=== PATIENT | female | born 1995 | race Hispanic/Latino ===

== ENCOUNTER 2020-02-20 06:03 | Day surgery (SDC) | payer BC ==
[2020-02-19 11:15] VITALS: BP 143/86
[2020-02-20] VITALS (17 sets, daily range): BP systolic 109–130; BP diastolic 66–85
[~2020-02-20] VITALS: Ht 157.5 cm; Wt 63.4 kg
[2020-02-20] MEDS ORDERED: LACTATED RINGERS 1000ML 1,000 ML IV ONE (06:40)
[2020-02-20] MEDS ORDERED: ONDANSETRON HCL 4 MG/2 ML VIAL ONE (07:22)
[2020-02-20] MEDS ORDERED: PROPOFOL 10 MG/ML 20ML VIAL IV ONE (07:22)
[2020-02-20] MEDS ORDERED: MIDAZOLAM HCL 1 MG/ML 2ML VIAL ONE (07:22)
[2020-02-20] MEDS ORDERED: SUCCINYLCHOLINE 200MG/10ML SYR ONE ×2 (07:22→07:28)
[2020-02-20] MEDS ORDERED: LIDOCAINE PF 2% 5ML ABBOJECT ONE (07:22)
[2020-02-20] MEDS ORDERED: DEXAMETHASONE SOD PHOSPHATE 10MG/ML 1ML VIAL ONE (07:22)
[2020-02-20] MEDS ORDERED: FENTANYL CITRATE PF 50 MCG/1 ML 2ML VIAL ONE (07:23)
[2020-02-20] MEDS ORDERED: MEPERIDINE-PF 25 MG/ML SYG ONE (07:26)
[2020-02-20] MEDS ORDERED: ROCURONIUM 10MG/1ML SYR 10 MG/ML ML ONE (07:29)
[2020-02-20] MEDS ORDERED: MEROPENEM 500 MG VIAL IVP PRN (08:00)
[2020-02-20] MEDS ORDERED: METOCLOPRAMIDE 10 MG/2 ML VIAL ONE (09:00)
--- NOTE | 2020-02-20 10:20 | NUR ---
DISCHARGE VERBAL AND WRITTEN DISCHARGE INSTRUCTIONS PROVIDED TO PATIENT AND MOTHER-MAX. NEW PRESCRIPTION GIVEN. VERBALIZED UNDERSTANDING. URINE STRAINER AND SPECIMEN CUP PROVIDED. EMPHASIZED TO PATIENT TO INCREASE FLUID INTAKE TO PROMOTE STONE FRAGMENT PASSAGE PER DR. SOUSA. PATIENT STATES NO COMPLAINTS OF PAIN. IV REMOVED-CATHETER INTACT. PATIENT DISCHARGED VIA WHEELCHAIR ACCOMPANIED BY MOTHER TO PRIVATE VEHICLE.
== END 2020-02-20 19:58 | disposition home or self-care (01) ==
LOC: DAH 06:03
PROVIDERS: ATTEND Urology
DX: N20.0 Calculus of kidney (principal); N30.20 Other chronic cystitis without hematuria; Z79.899 Other long term (current) drug therapy; Z20.828 Contact with and (suspected) exposure to other viral communicable diseases
CPT/HCPCS: 36415; 50590; 84703; A4215; A4216; A4221; A4222; A4223 ×3; A4510; A4600; A4606; A4663; C9803; J0330 ×2; J1100; J2001; J2175; J2250; J2405; J2704; J2765; J3010; J7120 ×2; U0003

== ENCOUNTER → 2020-03-18 | Outpatient (CLI) | payer BC | END | disposition home or self-care (01) | LOC: RAH 13:02 | PROVIDERS: ATTEND Urology | DX: N20.1 Calculus of ureter (principal); I87.8 Other specified disorders of veins; Z98.890 Other specified postprocedural states | CPT/HCPCS: 74018 ==

== ENCOUNTER 2020-07-16 06:24 | Day surgery (SDC) | payer BC ==
[2020-07-16] VITALS (17 sets, daily range): BP systolic 115–145; BP diastolic 56–99
[~2020-07-16] VITALS: Ht 152.4 cm; Wt 65.1 kg
[2020-07-16] MEDS ORDERED: LACTATED RINGERS 1000ML 1,000 ML IV ONE (06:48)
[2020-07-16] MEDS: MEROPENEM 500 MG VIAL IVP SCH ×2 (07:00→08:30)
[2020-07-16] MEDS ORDERED: PROPOFOL 10 MG/ML 20ML VIAL IV ONE (07:45)
[2020-07-16] MEDS ORDERED: FENTANYL CITRATE PF 50 MCG/1 ML 2ML VIAL ONE (07:45)
[2020-07-16] MEDS ORDERED: MIDAZOLAM HCL 1 MG/ML 2ML VIAL ONE ×2 (07:45→09:52)
[2020-07-16] MEDS ORDERED: LIDOCAINE PF 2% 5ML ABBOJECT ONE (07:45)
[2020-07-16] MEDS ORDERED: IOHEXOL 350 MG/ML 100ML INFUS..BTL IV ONE (08:54)
[2020-07-16] MEDS ORDERED: GLYCOPYRROLATE 1 MG/5 ML SYRINGE ONE (08:54)
[2020-07-16] MEDS ORDERED: PHENYLEPHRINE HCL 10 MG/ML 1ML VIAL IV ONE (09:16)
[2020-07-16] MEDS ORDERED: SODIUM CHLORIDE 0.9% 10 ML VIAL ONE (09:16)
== END 2020-07-16 11:15 | disposition home or self-care (01) ==
LOC: DAH 06:24
PROVIDERS: ATTEND Urology
DX: N20.2 Calculus of kidney with calculus of ureter (principal); Z20.822 Contact with and (suspected) exposure to COVID-19; Z87.440 Personal history of urinary (tract) infections; Z98.890 Other specified postprocedural states
CPT/HCPCS: 36415; 50590; 84703; A4215; A4221; A4222; A4223; A4663; A6260; C9803; J2001; J2185; J2250 ×2; J2370; J2704; J3010; J3490; J7120 ×2; Q9967; U0003

== ENCOUNTER → 2020-08-10 | Outpatient (CLI) | payer BC | END | disposition home or self-care (01) | LOC: OIH 11:08 | PROVIDERS: ATTEND Urology | DX: N20.0 Calculus of kidney (principal) | CPT/HCPCS: 74018 ==